=== PATIENT | female | born 2000 | race Caucasian/White ===

== ENCOUNTER 2024-07-16 09:03 | Outpatient (CLI) | payer OTHER, SELFPAY ==
--- NOTE | ~2024-07-16 | US_ITS ---
EXAMINATION: US abdomen limited DATE: 07/16/2024 10:07 INDICATION: Abnormal levels of other serum enzymes. TECHNIQUE: Multiple grayscale and Doppler ultrasound images of the abdomen were obtained. COMPARISON: CT abdomen and pelvis 03/05/2014 FINDINGS: The visualized portions of the head and body of the pancreas are normal. There is diffuse h epatic steatosis. There is normal flow in main portal vein. The gallbladder is normal in size. No gal lstones or gallbladder wall thickening. There is no sonographic Sánchez's sign. The common duct is nor mal and measures 2 mm. IMPRESSION: 1. Diffuse hepatic steatosis. Reviewed, dictated and finalized at location A. E OFFICER
== END 2024-07-16 09:04 | disposition home or self-care (01) ==
PROVIDERS: PCP Family Medicine; Visit Provider Student in an Organized Health Care Education/Training Program
DX: R74.8 Abnormal levels of other serum enzymes (principal); K76.0 Fatty (change of) liver, not elsewhere classified
CPT/HCPCS: 76705